=== PATIENT | female | born 1965 | race Two or more races ===

== ENCOUNTER → 2016-09-11 | Outpatient (CLI) | payer OTHER ==
[2014-08-28 16:25] VITALS: BP 124/58
--- NOTE | 2016-09-11 10:29 | RAD ---
Indication palpable mass. Targeted ultrasound to the left breast was performed. Examination was targeted to approximately 2 to 3:00 position of the breast where the patient feels a mass. In addition to images submitted by the technologist a real-time examination was performed by me. Corresponding to the palpable abnormality is a 3.8 cm cyst. Additional smaller cysts were noted in the same area of the breast at the time of exam. IMPRESSION: Simple cyst corresponding to the palpable abnormality in the left breast
== END | disposition home or self-care (01) ==
LOC: US 08:48
PROVIDERS: ATTEND Surgery
DX: N63 Unspecified lump in breast (principal)
CPT/HCPCS: 76641

== ENCOUNTER → 2016-09-15 | Outpatient (CLI) | payer OTHER ==
[~2016-09-15] VITALS: Ht 162.6 cm; Wt 77.1 kg
[2016-09-15 14:05] VITALS: BP 122/66
--- NOTE | 2016-09-15 16:02 | RAD ---
EXAM: Sonographic guided left breast aspiration; sonographic guided right breast core biopsy; right breast biopsy clip placement; right breast postbiopsy mammogram. HISTORY: 50-year-old female presents for sonographically guided aspiration of left breast cysts and core biopsy of a right breast nodule. TECHNIQUE: The risks of the procedure were discussed with the patient and written informed with is obtained. A timeout was performed. Sonographic imaging of the left breast was performed, demonstrating multiple prominent cysts. The skin overlying these cysts was sterilely prepped, draped and infiltrated with 1% lidocaine. A needle was advanced into several cysts. Approximately 20 cc navarrete colored fluid was aspirated from the largest cyst measuring 3 cm in maximum dimension. 2 additional cysts were completely aspirated with similar appearing aspirate. The aspirate was submitted to the department of pathology for analysis. Sterile bandages were placed at the needle entry sites. Subsequently, sonographic imaging of the right breast was performed and a small round hypoechoic lesion at the 1:00 position 5 cm from the nipple was identified. The skin overlying this region was sterilely prepped, draped and infiltrated with lidocaine. Multiple passes were made through the lesion with sonographic guidance. A biopsy clip was advanced into the biopsy bed. A postbiopsy mammogram demonstrates the biopsy clip within the biopsy bed. Manual compression was maintained until hemostasis was achieved. A sterile bandage placed. The patient tolerated the procedures without immediate complication. IMPRESSION: 1. Sonographic guided aspiration of left breast cysts. 2. Sonographic guided core biopsy of a lesion at the 1:00 position of the right breast and postbiopsy clip placement.
--- NOTE | 2016-09-18 04:09 | PATHOLOGY ---
CYTOPATHOLOGY REPORT CLINICAL HISTORY: Left breast cyst. See also [id number]. SPECIMEN(S) RECEIVED: A.Fine needle aspiration, Left breast cyst FINAL DIAGNOSIS: Left breast cyst fine needle aspiration, ThinPrep and cell block: - No malignant cells identified. - Macrophages, inflammatory cells, and degenerating red blood cells. (JPM:mgraul; d/t: 09/17/16) PATHOLOGIST: Mitesh Waldrop M.D. REPORT ELECTRONICALLY SIGNED BY: Mitesh Waldrop M.D. DATE/TIME: 09/17/2016 15:59 GROSS PATHOLOGY: A. Fine needle aspiration, Left breast cyst: The specimen is labeled "Orly Son". Fifteen mL of cloudy brown fluid unfixed from the needle rinse is submitted and One ThinPrep slide and a cell block were prepared from this material. (clt 09.16.2016) CUSTOMER MANAGEMENT SPECIALIST(S): HILDA Cartwright([facility]) INITIAL CPT CODE(S): A; 01389, 39951 Professional services performed by [facility] [place] [address] Technical services performed by [facility] at [address] [place] [address], [address], [place] [address]. PATIENT: ORLY SON /AGE: 412/15/1965 (Age: 50) SEX: F PATIENT #: [id number] ALT CASE #: SPECIMEN COLLECTION DATE: 09/15/2016 SPECIMEN RECEIVED DATE: 09/16/[address] [facility] [address] [place] [address], [address] [place] [address] PHONE: [phone] DIRECTOR: Samuel Nur M.D. * * * END OF REPORT * * *
--- NOTE | 2016-09-18 04:43 | PATHOLOGY ---
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 COMMENT: Sections of the right breast mass core biopsy reveal an invasive ductal carcinoma. The invasive carcinoma shows little to no tubule formation, moderate to marked nuclear pleomorphism, and only a few mitotic figures. 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 The invasive carcinoma measures up to 0.3 cm in greatest dimension on the glass slide. There is no lymphovascular tumor invasion. There are no tumor associated calcifications. The case is also examined by Dr. Nesbitt, who concurs with the diagnosis. Breast prognostic studies will be performed, the results of which will be reported separately. (JPM:csd; d/t: 09/17/2016) REPORT ELECTRONICALLY SIGNED BY: Mitesh Waldrop M.D. DATE/TIME: 09/17/2016 16:34 * * * * * * * * GROSS PATHOLOGY: Received in formalin labeled "Orly Son, right breast," are multiple needle cores of yellow-warren fibrofatty tissue measuring 1.0 x 0.4 x 0.1 cm in aggregate dimensions. The tissue is submitted in its entirety in cassette A1. The cold ischemic time is 5 minutes. The total formalin fixation time is 28 hours and 25 minutes. (CAA; 09/16/2016) INITIAL CPT CODE(S): A; 55071, 85904(4) Professional services performed [place] [address] Technical services performed by [facility] at [address] [place] [address] [address] [address]. SPECIMEN(S) RECEIVED: A.Right breast mass CLINICAL HISTORY: Right breast mass PATIENT: ORLY SON /AGE: 412/15/1965 (Age: 50) PATIENT #: [id number] ALT CASE #: [id number] SPECIMEN COLLECTION DATE: 09/15/2016 SPECIMEN RECEIVED DATE: 09/16/2016 [facility] - [address] [place] [address] - PHONE: [phone] * * * END OF REPORT * * *
== END | disposition home or self-care (01) ==
LOC: US 13:00
PROVIDERS: ATTEND Surgery
DX: N60.02 Solitary cyst of left breast (principal); N63 Unspecified lump in breast
CPT/HCPCS: 19000; 19081; 76942; C1713; G0206

== ENCOUNTER 2016-10-21 07:10 | Observation (INO) | payer OTHER ==
[~2016-10-21] VITALS: Ht 162.6 cm; Wt 80.3 kg
[2016-10-21] VITALS (7 sets, daily range): BP systolic 89–127; BP diastolic 44–75
[~2016-10-21 07:10] MED LIST: CEFAZOLIN 2GM PREMIX 50 ML IV ONE; FENTANYL PF 100 MCG/2 ML VIAL. IV PRN; HYDROMORPHONE 2 MG/ML VIAL. IV PRN; IV RINGERS,LACTATED 1000ML 1,000 ML IV SCH; LIDOCAINE 1% 1 ML SYRINGE. ID PRN; MORPHINE SULFATE 2 MG/ML DISP.SYRIN. IV PRN; ONDANSETRON PF 4 MG/2 ML VIAL. IV PRN; PROCHLORPERAZINE 10 MG/2 ML VIAL. IV PRN
[2016-10-21 07:49] LABS: NEG OBC UR NEG; POS OBC UR POS
[2016-10-21 08:01] LABS: BASO # 0.1 x10^3/uL (0.0-0.2); BASO % 1 % (0-3); EOS % 7 % (0-3); HEMATOCRIT 33.7 % (36.0-47.0); HEMOGLOBIN 11.4 g/dL (12.0-15.5); LYMPH # 1.7 x10^3/uL (1.0-4.8); LYMPH % 28 % (24-48); MEAN CORPUSCULAR HEMOGLOBIN 31 pg (25-35); MEAN CORPUSCULAR HGB CONC 34 g/dL (31-37); MEAN CORPUSCULAR VOLUME 91 fL (79-100); MONO % 8 % (0-9); NEUT % 57 % (31-73); PLATELET COUNT 248 x10^3/uL (140-400); RED BLOOD COUNT 3.69 x10^6/uL (3.50-5.40)
[2016-10-21 08:08] LABS: CALCIUM 8.9 mg/dL (8.5-10.1); CREATININE 0.7 mg/dL (0.6-1.0); GFR 88.6; POTASSIUM 3.8 mmol/L (3.5-5.1)
[2016-10-21 08:13] LABS: ALBUMIN 3.5 g/dL (3.4-5.0); ALBUMIN/GLOBULIN RATIO 0.9 (1.0-1.7); TOTAL BILIRUBIN 0.4 mg/dL (0.2-1.0); TOTAL PROTEIN 7.6 g/dL (6.4-8.2)
[2016-10-21] MEDS ORDERED: LIDOCAINE 1% / SOD BICARB 8.4% 20 ML VIAL. IJ ONE (09:00)
[2016-10-21] MEDS ORDERED: PROPOFOL 20 ML IV ONE (09:34)
[2016-10-21] MEDS ORDERED: LIDOCAINE 2% 100 MG/5 ML DISP.SYRIN. ONE (09:34)
[2016-10-21] MEDS ORDERED: FENTANYL PF 250 MCG/5 ML VIAL. ONE (09:34)
[2016-10-21] MEDS ORDERED: DEXAMETHASONE SOD PHOS 20 MG/5 ML VIAL. ONE (09:34)
[2016-10-21] MEDS ORDERED: ONDANSETRON PF 4 MG/2 ML VIAL. ONE (09:34)
[2016-10-21] MEDS ORDERED: MIDAZOLAM HCL 2 MG/2 ML VIAL. ONE (09:34)
--- NOTE | 2016-10-21 10:02 | RAD ---
Right breast needle localization, 10/21/2016: History: Breast cancer Previous studies demonstrated a malignancy in the posterior aspect of the right breast at the 1:00 location. There is an adjacent marker from a previous breast biopsy. Under local anesthesia, aseptic conditions and mammographic guidance a Kopan's needle with modified retention wire was placed into this region via a superior approach. The needle was removed and the final images show that the mass and biopsy marker are centered approximately 7 mm posterior to the distal aspect of the thickened portion of the retention wire, 5-6 cm deep to the skin surface. The patient tolerated the procedure well and was sent to surgery in good condition.
--- NOTE | 2016-10-21 10:50 | RAD ---
Radionuclide sentinel node localization, 10/21/2016: History: Right breast cancer Under aseptic conditions and utilizing ethyl chloride spray for topical anesthesia a total of 0.90 mCi of filtered technetium 99m sulfur colloid mixed with 0.5 cc of 1% lidocaine was injected subdermally in the right periareolar region in 4 divided doses. No imaging was performed. The patient was sent to surgery in good condition.
[2016-10-21] MEDS ORDERED: BUPIVAC MPF-EPI 0.5%-1:200000 30 ML VIAL. ONE (12:41)
[2016-10-21] MEDS ORDERED: ISOSULFAN BLUE 50 MG/5 ML VIAL. SQ ONE (12:41)
[2016-10-21] MEDS ORDERED: LIDOCAINE 1%/EPI 1:100,000 20 ML VIAL. ONE (12:41)
[2016-10-21] MEDS ORDERED: EPHEDRINE PF IN SALINE 50 MG/5 ML DISP.SYRIN. IV ONE (12:54)
[2016-10-21] MEDS ORDERED: PROCHLORPERAZINE 10 MG/2 ML VIAL. IV PRN (14:00)
[2016-10-21] MEDS ORDERED: ONDANSETRON PF 4 MG/2 ML VIAL. IV PRN (14:00)
[2016-10-21] MEDS ORDERED: HYDROMORPHONE 2 MG/ML VIAL. IV PRN (14:00)
[2016-10-21] MEDS ORDERED: OXYCODONE/APAP 5/325 TABLET. PO PRN ×2 (14:00)
[2016-10-21] MEDS ORDERED: 0.9 % SODIUM CHLORIDE 10 ML DISP.SYRIN. IV PRN (14:00)
--- NOTE | 2016-10-21 14:00 | PDOC4 ---
Operative Note Operative Note Operative Note: Preoperative Diagnosis: Right breast cancer Postoperative Diagnosis: Same Procedure: Right segmental mastectomy with wire localization, right axillary sentinel lymph node biopsy Surgeon: Florentino Explosives Mixer Operator: Tana SPEARS Anesthesia: Gen. Specimen: Right axillary sentinel lymph node, hot and blue to pathology; right segmental mastectomy, short stitch superficial, long stitch lateral to pathology ; additional right lumpectomy inferior margin to pathology EBL: 10 mL Drains: None Complications: None Indication: The patient is a 50-year-old female who was recently diagnosed with right breast cancer. In reviewing her surgical option she is interested in breast conservation and appears to be an appropriate candidate. The plan is to proceed with a right segmental mastectomy utilizing wire localization. We also plan to incorporate a sentinel lymph node biopsy. The details and risks of surgery were discussed. The risks include and are not limited to bleeding, infection, anesthetic risk, pain, scar tissue, potential need for additional surgery or procedure. She understands and would like to proceed. Description: The patient was initially taken to radiology where she underwent injection of technetium sulfur colloid and placement of the localizing wire. She was taken to the operating room and placed supine on the operating table. Gen. anesthesia was performed. The right breast was prepped with ChloraPrep and draped in a standard surgical manner. The wire was entering the superior aspect of the right breast. 5 mL of Lymphazurin was injected deep to the nipple areolar complex. Several minutes were allowed to elapse. An incision was made in the right axilla with a scalpel. Cautery dissection was carried down to the axillary contents. The radio guided probe identified one focal area of increased nuclear uptake. We proceeded with dissection toward this area. This led to a blue stained lymph node which represented a sentinel lymph node. This was harvested and sent to pathology. Further inspection showed no other areas of blue staining. There was mild background radioactivity but no other focal focal areas of uptake. There was also no abnormal palpable adenopathy. Frozen section evaluation of the sentinel lymph node showed no evidence of metastasis. We then proceeded with the lumpectomy. An incision was made in the skin lines superior to the right nipple. Cautery dissection was carried down to the breast parenchyma directed toward the expected location of the tumor. The wire was readily identified and delivered into the wound. The lumpectomy was then performed using cautery. The involved breast tissue in the direction of the distal portion of the wire was mobilized from the surrounding breast tissue. The tumor was fairly close to the chest wall and care was taken to ensure dissection completely down the pectoralis muscle. The superficial margin of the lumpectomy specimen was marked with a short silk suture. The lateral margin was marked with a long silk suture. The specimen was then taken off of the chest wall in its entirety and sent to radiology. Specimen radiographs confirmed the clip and distal part of the wire to be well within the specimen. I did elect to remove a small ellipse of tissue along the inferior margin. This was done with cautery and sent as a specimen in formalin. No other gross abnormalities were seen. Hemostasis was readily achieved with cautery. The subcutaneous tissue of both incision sites was closed with interrupted 3-0 Vicryl. The skin was then approximated with a running 4-0 Monocryl suture. Sterile OpSite dressings were then applied. The patient tolerated the procedure well and was sent to the recovery room in stable condition. At the end of the case all counts were correct. SHARONA ENGLE MD Oct 21, 2016 14:00
--- NOTE | 2016-10-21 14:17 | RAD ---
Right digital specimen mammogram, 10/21/2016: History: Breast cancer A single image of a surgical specimen from the patient's right breast demonstrates the localized mass and adjacent biopsy marker within the specimen centered at the I/5-7 level in the specimen container. This mass lies adjacent to the proximal aspect of the thickened portion of the retention wire. There are additional microcalcifications within the specimen at the F-H/7 level in the specimen container.
[2016-10-21] MEDS: FENTANYL PF 100 MCG/2 ML VIAL. IV PRN ×3 (14:25→14:56)
[2016-10-21] MEDS ORDERED: PNEUMOC CONJ VACC 23-VALENT 0.5 ML VIAL. VAX IM ONE (16:15)
[2016-10-21] MEDS ORDERED: FLU VACC QUAD 2016-17 (36MOS+)/PF 0.5 ML SYRINGE. VAX IM ONE (16:15)
[2016-10-21] MEDS: POTASSIUM CL 20MEQ D5-0.45NACL 1,000 ML IV SCH ×2 (16:28→20:43)
[2016-10-22 03:00] VITALS: BP 84/39
[2016-10-22 07:00] VITALS: BP 94/44
--- NOTE | 2016-10-22 09:09 | PDOC ---
NAKIA YOUNG HYDRAULIC PRESS OPERATOR 10/22/16 0909: SURGICAL PROGRESS NOTE Subjective tolerating diet pain minimal ambulating Vital Signs Vital Signs Date Time Temp Pulse Resp B/P Pulse Ox O2 Delivery O2 Flow Rate FiO2 10/22/16 07:00 97.7 66 18 94/44 96 Room Air 97.7 10/21/16 20:00 10.0 I&O Intake and Output 10/22/16 07:00 Intake Total 2495 ml Balance 2495 ml Intake Oral 845 ml IV Total 1650 ml # Voids 4 General: Alert, Oriented X3, Cooperative, No acute distress Skin: Other (right breast incision dressing intact) Labs Laboratory Tests Test 10/21/16 07:35 10/21/16 07:45 Urine Test Negative (NEG) White Blood Count 6.0x10^3/uL (4.0-11.0) Red Blood Count 3.69x10^6/uL (3.50-5.40) Hemoglobin 11.4g/dL (12.0-15.5) Hematocrit 33.7% (36.0-47.0) Mean Corpuscular Volume 91fL (79-100) Mean Corpuscular Hemoglobin 31pg (25-35) Mean Corpuscular Hemoglobin Concent 34g/dL (31-37) Red Cell Distribution Width 14.0% (11.5-14.5) Platelet Count 248x10^3/uL (140-400) Neutrophils (%) (Auto) 57% (31-73) Lymphocytes (%) (Auto) 28% (24-48) Monocytes (%) (Auto) 8% (0-9) Eosinophils (%) (Auto) 7% (0-3) Basophils (%) (Auto) 1% (0-3) Neutrophils # (Auto) 3.4x10^3uL (1.8-7.7) Lymphocytes # (Auto) 1.7x10^3/uL (1.0-4.8) Monocytes # (Auto) 0.5x10^3/uL (0.0-1.1) Eosinophils # (Auto) 0.4x10^3/uL (0.0-0.7) Basophils # (Auto) 0.1x10^3/uL (0.0-0.2) Sodium Level 143mmol/L (136-145) Potassium Level 3.8mmol/L (3.5-5.1) Chloride Level 106mmol/L (98-107) Carbon Dioxide Level 29mmol/L (21-32) Anion Gap 8 (6-14) Blood Urea Nitrogen 17mg/dL (7-20) Creatinine 0.7mg/dL (0.6-1.0) Estimated GFR (Cockcroft-Gault) 88.6 BUN/Creatinine Ratio 24 (6-20) Glucose Level 101mg/dL (70-99) Calcium Level 8.9mg/dL (8.5-10.1) Total Bilirubin 0.4mg/dL (0.2-1.0) Aspartate Amino Transf (AST/SGOT) 15U/L (15-37) Alanine Aminotransferase (ALT/SGPT) 18U/L (14-59) Alkaline Phosphatase 99U/L (46-116) Total Protein 7.6g/dL (6.4-8.2) Albumin 3.5g/dL (3.4-5.0) Albumin/Globulin Ratio 0.9 (1.0-1.7) Problem List Problems Medical Problems: (1) Breast cancer, right Status: Acute Assessment/Plan s/p right mastectomy dc home FU 1 week Problems: SHARONA ENGLE MD 10/22/16 1115: SURGICAL PROGRESS NOTE Assessment/Plan Agree with above Problems: NAKIA YOUNG APRN Oct 22, 2016 09:09 SHARONA ENGLE MD Oct 22, 2016 11:15
[2016-10-22] MEDS ORDERED: OXYC1TAB7 PO (09:11)
[2016-10-22 11:00] VITALS: BP 97/49
--- NOTE | 2016-10-26 10:17 | PDOC3 ---
Discharge Summary* Date of Admission: Oct 21, 2016 Date of Discharge: Oct 22, 2016 Admitting Diagnosis Problems Medical Problems: (1) Breast cancer, right Status: Acute Final Diagnosis Problems Medical Problems: (1) Breast cancer, right Status: Acute CONSULTS NONE Procedures Right segmental mastectomy with wire localization, right axillary sentinel lymph node biopsy Brief Hospital Course Ms. Son is a 50 old female who presented with breast cancer and underwent mastectomy, postoperatively tolerating diet, pain managed, and ambulating. Ready for discharge home Disposition/Orders: D/C to Home CONDITION AT DISCHARGE: Stable Diet: Regular Scheduled PRN Oxycodone Hcl/Acetaminophen (Oxycodone-Acetaminophen 5-325) 1 TAB PO PRN Q4HRS PRN PRN MILD PAIN, 1ST CHOICE Miscellaneous Medications Info (No Known Medications Prior To Admisstion) 1 EACH MC (Reported) FOLLOW UP APPOINTMENT: 1 week Time Spent Total time spent with patient [] minutes for coordination of care, counseling, and education. NAKIA YOUNG APRN Oct 26, 2016 10:17
--- NOTE | 2016-10-29 13:52 | PATHOLOGY ---
PATHOLOGY REPORT * * * * * * * * FINAL DIAGNOSIS: A. [place] lymph node #1 hot and blue: - Negative for tumor (0/1). B. Breast tissue, wire localized right segmental mastectomy: - RESIDUAL INVASIVE HIGH-GRADE DUCTAL CARCINOMA AND FOCAL INTERMEDIATE TO HIGH-GRADE DUCTAL CARCINOMA IN SITU, FORMING A TUMOR MASS MEASURING UP TO 2.0 CM IN GREATEST DIMENSION. - TUMOR IS APPROXIMATELY 0.3 CM FROM THE CLOSEST ANTERIOR SUPERFICIAL MARGIN OF RESECTION. - No lymphovascular tumor invasion identified. - Previous biopsy site changes. - Fibrocystic changes, focal. C. Breast tissue, additional inferior margin: - Focal proliferative fibrocystic changes with focal mild to moderate ductal epithelial hyperplasia. Clinical History: Other: Breast mass Radiologic Finding: Mass or architectural distortion Procedure: Other: Wire localized segmental mastectomy. Lymph Node Sampling: [place] lymph node(s) Specimen Laterality: Right Tumor Site of Invasive Carcinoma: Not specified: . Presence of Invasive Carcinoma: Invasive ductal carcinoma (no special type or not otherwise specified) Histologic Grade: Tubule formation: Score 3: <10% of tumor area forming glandular/tubular structures Nuclear pleomorphism: Score 3: Vesicular nuclei, often with prominent nucleoli, exhibiting marked variation in size and shape, occasionally with very large and bizarre forms Mitotic Rate: Score 2 (4-7 mitoses per mm2) [place] Histologic Score-Grade III: 8-9 points Ductal Carcinoma In Situ: DCIS is present Negative for extensive intraductal component (EIC) DCIS Architectural Patterns: Solid DCIS Nuclear Grade: Grade III (high) DCIS Necrosis: Present, central (expansive "comedo" necrosis) Lobular Carcinoma In Situ (LCIS): Not identified: . Tumor Size: Size of Largest Invasive Carcinoma: Greatest dimension of largest focus of invasion > 1 mm Greatest dimension: 20 mm Skin: Skin is not present No skeletal muscle present Invasive Carcinoma Margins: Margins uninvolved by invasive carcinoma. Distance from closest margin: 3 mm Closest Uninvolved Margin-Anterior Distance of invasive carcinoma to posterior margin: 4 mm DCIS Margins: Margins uninvolved by DCIS (DCIS present) Lymph-Vascular Invasion: Not identified: . Dermal Lymph-Vascular Invasion: No skin present Microcalcifications: Not identified: . Treatment Effect: No known presurgical therapy Lymph Nodes: Total number of nodes examined (sentinel and nonsentinel): 1 Micro / Macro Metastases not identified: . Number of [place] Lymph Nodes examined: 1 Method of Evaluation of [place] Lymph Nodes: H-E, multiple levels Method of Evaluation of [place] Lymph Nodes: Immunohistochemistry Estrogen Receptor: Performed on another specimen, number: [id number] Results from other specimen: 0% Progesterone Receptor: Performed on another specimen, number: [id number] Results from other specimen: 0% HER2 Immunoperoxidase Results: Performed on another specimen, number: [id number] Results from other specimen: 3+ In Situ Hybridization (FISH or CISH) for HER2 Results: Not performed: . Other Ancillary Studies: Performed on another specimen Specimen (accession number): [id number] Name of test: Ki67 Results: 12.6% TNM Descriptor(s): Primary Tumor (Invasive Carcinoma) (pT): pT1c: Tumor >10 mm but <= 20 mm in greatest dimension Regional Lymph Nodes (pN): Modifier (sn): Only sentinel node(s) evaluated. Category (pN): pN0 (i-): No regional lymph node metastases histologically, negative IHC Additional Pathologic Findings: See diagnoses COMMENT: Sections of the wire localized right segmental mastectomy reveal an invasive high-grade ductal carcinoma with focal high-grade ductal carcinoma in situ. The tumor mass measures up to 2.0 cm in greatest dimension. The tumor is approximately 0.3 cm from the closest anterior superficial margin of resection, and 0.4 cm from the closest posterior margin of resection. There is no lymphovascular tumor invasion. There is a single sentinel lymph node submitted for examination. An immunoperoxidase stain for AE1/AE3 is obtained on the lymph node and yields the following results: AE1/AE3 (A1): negative for tumor (ANIYA:; d/t: 10/28/16) REPORT ELECTRONICALLY SIGNED BY: Mitesh Waldrop M.D. DATE/TIME: 10/29/2016 13:51 * * * * * * * * GROSS PATHOLOGY: A. The specimen is received fresh for intraoperative consultation and is designated "sentinel lymph node #1 hot and blue." This consists of an ovoid segment of yellow fatty appearing tissue measuring up to 1.9 x 1.6 cm. This contains a pink-yellow lymph node showing focal bluish discoloration, measuring up to 1.4 cm in greatest dimension. This is submitted for frozen section as FSA1. The tissue remaining from frozen section is submitted for permanent sections as A1. (JPM:mgr; d/t: 10/21/16) B. The specimen is received in formalin, labeled "Orly Son - short stitch superficial, long stitch lateral, right segmental mastectomy." Received is a 60 g right segmental mastectomy specimen oriented with sutures as follows: Short-superficial and long-lateral. The specimen measures 9.4 cm from superior to inferior, 6.5 cm from medial to lateral, and 2.4 cm from anterior/superficial to posterior/deep. The specimen displays a needle localization wire, which inserts at the superior/anterior aspect of the breast. Skin is not grossly identified. The specimen is inked as follows: Superior-blue, inferior-green, medial-yellow, lateral-red, anterior/superficial-black, and posterior/deep - orange. The specimen is serially sectioned from superior to inferior to reveal a 2.0 x 1.2 x 0.8 cm white-navarrete, poorly circumscribed, and firm mass. The mass is located 0.4 cm from the anterior/superficial margin, 0.7 cm from the posterior/deep margin, 1.5 cm from the medial margin, 2.8 cm from the lateral margin, 3.5 cm from the superior margin, and 4.4 cm from the inferior margin. The remaining parenchyma is composed of predominantly yellow-navarrete and lobulated adipose soft tissue and less than 5% white fibrous tissue. The cold ischemic time and time in formalin are not provided. The time out of formalin is at 11:41 PM on 10/22/2016. The specimen is representatively submitted as follows: B1 most superior margin B2 most inferior margin B3-B7 mass, entirely submitted from superior to inferior B8 lateral and medial margins C. The specimen is received in formalin, labeled "Orly Son - additional inferior margin." Received is a 6 g, 7.8 x 2.0 x 1.1 cm aggregate of blood-tinged, yellow-navarrete, and lobulated fibroadipose tissue. The specimen is inked black and serially sectioned to reveal a 1.0 x 0.5 cm focal area of fibrous tissue. The remaining parenchyma is yellow-navarrete and lobulated with less than 5% white fibrous tissue. No distinct masses are grossly identified. The cold ischemic time and time in formalin are not provided. The time out of formalin is at 11:41 PM on 10/22/2016. The specimen is entirely submitted in cassette C1-C8, with the fibrous tissue submitted in cassette C2. (TTL; 10/22/2016) FROZEN SECTION DIAGNOSIS: (Denise Waldrop M.D.) A. [place] lymph node #1 hot and blue: - Negative for tumor. The results are reported to Dr. Good in the operating room. (JPM:; d/t: 10/21/16) Testing performed [place] [address] INITIAL CPT CODE(S): 76304(2), 16747, 17341 Professional services performed [place] [facility] [address] Technical services performed by [facility] at [address] [place] [address], [facility] [address] [address]. SPECIMEN(S) RECEIVED: A.[place] lymph node #1 hot and blue B.Right segmental mastectomy C.Additional inferior margin CLINICAL HISTORY: None given PATIENT: ORLY SON /AGE: 412/15/1965 (Age: 50) PATIENT #: [id number] ALT CASE #: SPECIMEN COLLECTION DATE: 10/21/2016 SPECIMEN RECEIVED DATE: 10/21/2016 [facility] - [address] [place] [address] - PHONE: [phone] * * * END OF REPORT * * *
[2016-11-23] MEDS ORDERED: OXYC-323 PO (15:03)
== END 2016-10-22 11:00 | disposition home or self-care (01) ==
LOC: SURG 07:10 → 4 NORTH 15:46
PROVIDERS: ADMIT Surgery; ATTEND Surgery
DX: C50.911 Malignant neoplasm of unspecified site of right female breast (principal); Z23 Encounter for immunization
CPT/HCPCS: 19281; 19301; 36415; 38525; 38792; 76098; 80053; 81025; 85027; 90471; 90472; 90686; 90732; 96374; 96375; A9541; C1769; G0378; G0379; J0690; J1100; J2250; J2405; J2704; J3010; J3490; J7120; Q9968; 88305; 88307; 88342; J0780; J2270; G0641

== ENCOUNTER → 2016-11-23 | Day surgery (SDC) | payer OTHER ==
[~2016-11-23] VITALS: Ht 162.6 cm; Wt 80.7 kg
[~2016-11-23] MED LIST changes: +DEXAMETHASONE SOD PHOS 20 MG/5 ML VIAL. ONE; -FENTANYL PF 100 MCG/2 ML VIAL. IV PRN; +FENTANYL PF 100 MCG/2 ML VIAL. ONE; +HEPARIN S0DIUM 5,000 UNIT in IV NORMAL SALINE 500ML BAG 500 ML IRR ONE; +LIDOCAINE 1% PF 30 ML VIAL. ONE; +LIDOCAINE 2% 100 MG/5 ML DISP.SYRIN. ONE; +ONDANSETRON PF 4 MG/2 ML VIAL. ONE; +OXYC-323 PO; +OXYC1TAB7 PO; +OXYCODONE/APAP 5/325 TABLET. PO ONE; +PHENYLEPHRINE in 0.9% NACL PF 1 MG/10 ML DISP.SYRIN. IV ONE; +PROPOFOL 20 ML IV ONE; +SEVOFLURANE 31 TO 60 MINUTES. IH ONE
[2016-11-23 10:09] LABS: NEG OBC UR NEG; POS OBC UR POS
--- NOTE | 2016-11-23 13:16 | DISCH ---
DISCHARGE INSTRUCTIONS Condition on Discharge Condition on Discharge: Stable Activity After Discharge Activity Instructions for Disc: Resume previous activity Diet after Discharge Diet after Discharge: Regular Wound Incision Care Wound/Incision Care: Other, see below (keep opsite dressing clean and dry) Follow-Up Follow up with: Dr Engle in 2-3 weeks, call for appt [phone] SHARONA ENGLE MD Nov 23, 2016 13:16
--- NOTE | 2016-11-23 13:16 | PDOC4 ---
Operative Note Operative Note Operative Note: Preoperative Diagnosis: Right breast cancer Postoperative Diagnosis: Same Procedure: Placement of Power Port-A-Cath using SonoSite guidance Surgeon: Florentino Anesthesia: Gen. EBL: 10 mL Specimen: None Drains: None Complications: None Indication: The patient is a 50 year old female with recently diagnosed right breast cancer. A request was made for placement of a Port-A-Cath. The details and risks of the procedure were discussed. The risks include bleeding, infection , vessel injury, pneumothorax, pain, anesthetic risk, port, catheter or tubing malfunction or dysfunction, potential need for additional surgery or procedure. The patient understands and would like to proceed. Description: The patient was placed supine on the operating table and general anesthesia was performed. The bilateral neck and chest were prepped with ChloraPrep and draped in a standard surgical manner. With SonoSite ultrasound guidance the left internal jugular vein was readily identified and appeared patent. Entry was made into the vein with the skinny introducer needle under ultrasound guidance. The skinny guidewire passed readily into the central venous system. A small incision was made at the skin exit site. The skinny sheath was then placed over the guidewire. The larger guidewire was then placed within the sheath into the central venous system. Intraoperative fluoroscopy confirmed good position of the guidewire in the central venous system. The dilator and sheath were then placed over the guidewire. The catheter portion was then inserted into the central venous system and visualized using fluoroscopy. A separate left upper chest skin incision was made with a scalpel. A subcutaneous pocket was developed with cautery of sufficient size to accommodate the port. The catheter was then tunneled subcutaneously to the level of the newly formed pocket. Using fluoroscopy the catheter was positioned with the tip in the distal superior vena cava. The catheter was then cut and assembled to the port. The port was then secured to the chest wall with two 2-0 Prolene sutures. Using the Seymour needle the port readily aspirated and flushed without difficulty. Fluoroscopy confirmed good positioning of the catheter with no twists or kinks. The subcutaneous tissue was approximated with 3-0 Vicryl. The skin was then closed with 4-0 Monocryl. A sterile OpSite dressing was then applied. The patient tolerated the procedure well and was sent to the recovery room in stable condition. At the end of the case all counts were correct. SHARONA ENGLE MD Nov 23, 2016 13:16
[2016-11-23] MEDS: FENTANYL PF 100 MCG/2 ML VIAL. IV PRN ×5 (13:18→14:24)
--- NOTE | 2016-11-23 14:24 | RAD ---
Portable chest, 11/23/2016: History: Check Port-A-Cath placement A left Port-A-Cath is in place with its tip lying in the superior vena cava. The heart size and pulmonary vascularity are normal. No pulmonary infiltrates are seen. There is no evidence of pleural fluid. IMPRESSION: 1. The tip of the left Port-A-Cath lies in the superior vena cava. 2. No acute cardiopulmonary abnormality is detected.
[2016-11-23 15:15] VITALS: BP 100/68
== END | disposition home or self-care (01) ==
LOC: SURG 09:12
PROVIDERS: ATTEND Surgery
DX: C50.911 Malignant neoplasm of unspecified site of right female breast (principal); Z90.49 Acquired absence of other specified parts of digestive tract; Z85.3 Personal history of malignant neoplasm of breast
CPT/HCPCS: 36561; 71010; 81025; C1788; J0690; J1100; J2370; J2405; J2704; J3010; J7040; 36556

== ENCOUNTER → 2016-12-15 | Outpatient (CLI) | payer OTHER ==
[2016-11-23 15:15] VITALS: BP 100/68
[~2016-12-15] MED LIST changes: -CEFAZOLIN 2GM PREMIX 50 ML IV ONE; -DEXAMETHASONE SOD PHOS 20 MG/5 ML VIAL. ONE; -FENTANYL PF 100 MCG/2 ML VIAL. ONE; +HEPARIN PF 500 UNIT/5 ML DISP.SYRIN. IV ONE; -HEPARIN S0DIUM 5,000 UNIT in IV NORMAL SALINE 500ML BAG 500 ML IRR ONE; -HYDROMORPHONE 2 MG/ML VIAL. IV PRN; +IOHEXOL 240 MG/ML 50ML VIAL. PO ONE; +IOHEXOL 300 MG/ML 75 ML VIAL IV ONE; -IV RINGERS,LACTATED 1000ML 1,000 ML IV SCH; -LIDOCAINE 1% 1 ML SYRINGE. ID PRN; -LIDOCAINE 1% PF 30 ML VIAL. ONE; -LIDOCAINE 2% 100 MG/5 ML DISP.SYRIN. ONE; -MORPHINE SULFATE 2 MG/ML DISP.SYRIN. IV PRN; -ONDANSETRON PF 4 MG/2 ML VIAL. IV PRN; -ONDANSETRON PF 4 MG/2 ML VIAL. ONE; -OXYCODONE/APAP 5/325 TABLET. PO ONE; -PHENYLEPHRINE in 0.9% NACL PF 1 MG/10 ML DISP.SYRIN. IV ONE; -PROCHLORPERAZINE 10 MG/2 ML VIAL. IV PRN; -PROPOFOL 20 ML IV ONE; -SEVOFLURANE 31 TO 60 MINUTES. IH ONE
[2016-12-15 13:33] LABS: BASO # 0.1 x10^3/uL (0.0-0.2); BASO % 1 % (0-3); EOS % 7 % (0-3); HEMATOCRIT 34.3 % (36.0-47.0); HEMOGLOBIN 11.2 g/dL (12.0-15.5); LYMPH # 2.1 x10^3/uL (1.0-4.8); LYMPH % 31 % (24-48); MEAN CORPUSCULAR HEMOGLOBIN 29 pg (25-35); MEAN CORPUSCULAR HGB CONC 33 g/dL (31-37); MEAN CORPUSCULAR VOLUME 90 fL (79-100); MONO % 8 % (0-9); NEUT % 52 % (31-73); PLATELET COUNT 269 x10^3/uL (140-400); RED BLOOD COUNT 3.83 x10^6/uL (3.50-5.40); RED CELL DISTRIBUTION WIDTH 13.7 % (11.5-14.5); WHITE BLOOD COUNT 6.7 x10^3/uL (4.0-11.0)
[2016-12-15 13:50] LABS: ALBUMIN 3.6 g/dL (3.4-5.0); ALBUMIN/GLOBULIN RATIO 0.8 (1.0-1.7); CALCIUM 8.8 mg/dL (8.5-10.1); CREATININE 0.8 mg/dL (0.6-1.0); GFR 75.6; POTASSIUM 4.4 mmol/L (3.5-5.1); TOTAL BILIRUBIN 0.4 mg/dL (0.2-1.0); TOTAL PROTEIN 8.4 g/dL (6.4-8.2)
--- NOTE | 2016-12-15 15:36 | RAD ---
CT scan of the chest, abdomen and pelvis with contrast 12/15/2016 Clinical history: Breast cancer. Technique: After the oral and intravenous administration of contrast, contiguous, 5 mm axial sections were obtained through the chest abdomen and pelvis. 75 cc of Omnipaque 300 were administered intravenously during this examination. One or more of the following individualized dose reduction techniques were utilized for this study: 1. Automated exposure control. 2. Adjustment of the mA and/or kV according to patient size. 3. Use of iterative reconstruction technique. Findings: A left internal jugular [id number]-a-[id number] type catheter is seen extending to the proximal left brachiocephalic vein. No hilar, mediastinal or axillary lymphadenopathy is seen. Postsurgical changes are seen involving the right breast. The heart is borderline enlarged. The thoracic aorta tapers normally. Small linear bands of scarring are seen involving the apices of both lungs. No acute pulmonary infiltrate is seen. No pulmonary mass or significant pulmonary nodule is noted. No pneumothorax or pleural effusion is seen. The liver, spleen, pancreas, adrenal glands and kidneys are within normal limits. The abdominal aorta tapers normally. The gallbladder is slightly contracted. No free fluid or free air is seen within the abdomen. There is no evidence of bowel obstruction. Air and stool is seen throughout the colon. No retroperitoneal lymphadenopathy is seen. Images through the pelvis demonstrate the urinary bladder distended with urine. The uterus is within normal limits. No adnexal mass is seen. Calcifications are seen within the pelvis consistent with phleboliths. No free fluid is seen. No pelvic or inguinal lymphadenopathy is noted. Minimal degenerative changes are seen involving the thoracic and lower lumbar spine. Minimal S shaped curvature of the thoracolumbar spine is noted. Impression: There is no CT evidence of metastatic disease involving the chest, abdomen and pelvis.
--- NOTE | 2016-12-15 17:19 | RAD ---
Radionuclide bone scan, 12/15/2016: History: Breast cancer. Whole body imaging was performed following IV injection of 25 mCi of technetium 99m MDP. No previous bone scan is available at this time for comparison purposes. The following findings are delineated on today's exam: 1. There is minimally increased activity in the lower lumbar spine on the right at approximately the L4 level. The current CT study demonstrates spurring in this region, which is likely the source of this activity. No sclerotic or lytic lesion is seen on the CT exam. 2. Increased activity at both shoulders, elbows, wrists and ankles is likely arthritic. 3. Minimally increased activity in the right mandibular region is probably due to dental disease. 4. Activity of the radionuclide about the skeleton and major joints is otherwise symmetric. 5. Normal activity is present in the kidneys and the bladder. IMPRESSION: No convincing evidence of osseous metastatic disease.
== END | disposition home or self-care (01) ==
LOC: NM 08:30
PROVIDERS: ATTEND Internal Medicine Hematology & Oncology
DX: C50.211 Malignant neoplasm of upper-inner quadrant of right female breast (principal)
CPT/HCPCS: 36415; 71260; 74177; 78306; 80053; 85027; 86300; 96374; A9503; Q9966; Q9967

== ENCOUNTER → 2017-01-26 | Outpatient (CLI) | payer OTHER ==
[2016-11-23 15:15] VITALS: BP 100/68
[~2017-01-26] MED LIST changes: -HEPARIN PF 500 UNIT/5 ML DISP.SYRIN. IV ONE; -IOHEXOL 240 MG/ML 50ML VIAL. PO ONE; -IOHEXOL 300 MG/ML 75 ML VIAL IV ONE
[2017-01-26 09:58] LABS: BASO # 0.1 x10^3/uL (0.0-0.2); BASO % 1 % (0-3); EOS % 9 % (0-3); HEMATOCRIT 36.3 % (36.0-47.0); HEMOGLOBIN 11.7 g/dL (12.0-15.5); LYMPH # 1.8 x10^3/uL (1.0-4.8); LYMPH % 31 % (24-48); MEAN CORPUSCULAR HEMOGLOBIN 28 pg (25-35); MEAN CORPUSCULAR HGB CONC 32 g/dL (31-37); MEAN CORPUSCULAR VOLUME 88 fL (79-100); MONO % 8 % (0-9); NEUT % 51 % (31-73); PLATELET COUNT 249 x10^3/uL (140-400); RED BLOOD COUNT 4.13 x10^6/uL (3.50-5.40); RED CELL DISTRIBUTION WIDTH 14.7 % (11.5-14.5); WHITE BLOOD COUNT 5.9 x10^3/uL (4.0-11.0)
[2017-01-26 10:18] LABS: ALBUMIN 3.6 g/dL (3.4-5.0); ALBUMIN/GLOBULIN RATIO 0.8 (1.0-1.7); CREATININE 0.8 mg/dL (0.6-1.0); GFR 75.6; POTASSIUM 4.1 mmol/L (3.5-5.1); TOTAL BILIRUBIN 0.3 mg/dL (0.2-1.0); TOTAL PROTEIN 8.2 g/dL (6.4-8.2)
== END | disposition home or self-care (01) ==
LOC: LAB 09:34
PROVIDERS: ATTEND Internal Medicine Hematology & Oncology
DX: C50.211 Malignant neoplasm of upper-inner quadrant of right female breast (principal)
CPT/HCPCS: 36415; 80053; 83735; 85027; 86300

== ENCOUNTER → 2017-02-02 | Outpatient (CLI) | payer OTHER ==
[2016-11-23 15:15] VITALS: BP 100/68
[2017-02-02 11:36] LABS: BASO % 1 % (0-3); EOS % 3 % (0-3); HEMATOCRIT 36.7 % (36.0-47.0); HEMOGLOBIN 12.2 g/dL (12.0-15.5); LYMPH # 1.3 x10^3/uL (1.0-4.8); LYMPH % 41 % (24-48); MEAN CORPUSCULAR HEMOGLOBIN 29 pg (25-35); MEAN CORPUSCULAR HGB CONC 33 g/dL (31-37); MEAN CORPUSCULAR VOLUME 86 fL (79-100); MONO % 2 % (0-9); NEUT % 54 % (31-73); PLATELET COUNT 218 x10^3/uL (140-400); RED BLOOD COUNT 4.28 x10^6/uL (3.50-5.40); RED CELL DISTRIBUTION WIDTH 14.6 % (11.5-14.5); WHITE BLOOD COUNT 3.1 x10^3/uL (4.0-11.0)
[2017-02-02 12:04] LABS: ALBUMIN 3.7 g/dL (3.4-5.0); ALBUMIN/GLOBULIN RATIO 0.8 (1.0-1.7); CALCIUM 9.1 mg/dL (8.5-10.1); CREATININE 0.7 mg/dL (0.6-1.0); GFR 88.2; MAGNESIUM 1.9 mg/dL (1.8-2.4); POTASSIUM 4.2 mmol/L (3.5-5.1); TOTAL BILIRUBIN 0.6 mg/dL (0.2-1.0); TOTAL PROTEIN 8.4 g/dL (6.4-8.2)
== END | disposition home or self-care (01) ==
LOC: LAB 11:08
PROVIDERS: ATTEND Internal Medicine Hematology & Oncology
DX: C50.211 Malignant neoplasm of upper-inner quadrant of right female breast (principal)
CPT/HCPCS: 36415; 80053; 83735; 85027

== ENCOUNTER → 2017-02-09 | Outpatient (CLI) | payer OTHER ==
[2016-11-23 15:15] VITALS: BP 100/68
[2017-02-09 09:33] LABS: BASO % 1 % (0-3); EOS % 1 % (0-3); HEMATOCRIT 30.6 % (36.0-47.0); HEMOGLOBIN 10.9 g/dL (12.0-15.5); LYMPH # 1.7 x10^3/uL (1.0-4.8); LYMPH % 66 % (24-48); MEAN CORPUSCULAR HEMOGLOBIN 30 pg (25-35); MEAN CORPUSCULAR HGB CONC 36 g/dL (31-37); MEAN CORPUSCULAR VOLUME 85 fL (79-100); MONO % 25 % (0-9); NEUT % 8 % (31-73); PLATELET COUNT 208 x10^3/uL (140-400); RED CELL DISTRIBUTION WIDTH 14.6 % (11.5-14.5); WHITE BLOOD COUNT 2.6 x10^3/uL (4.0-11.0)
[2017-02-09 12:33] LABS: PLT ESTIMATE ADEQUATE (ADEQUATE)
== END | disposition home or self-care (01) ==
LOC: LAB 09:19
PROVIDERS: ATTEND Internal Medicine Medical Oncology
DX: C50.211 Malignant neoplasm of upper-inner quadrant of right female breast (principal)
CPT/HCPCS: 36415; 85007; 85027

== ENCOUNTER → 2017-02-16 | Outpatient (CLI) | payer OTHER ==
[2016-11-23 15:15] VITALS: BP 100/68
[2017-02-16 10:20] LABS: BASO % 1 % (0-3); EOS % 0 % (0-3); HEMATOCRIT 31.8 % (36.0-47.0); HEMOGLOBIN 10.8 g/dL (12.0-15.5); LYMPH # 1.9 x10^3/uL (1.0-4.8); LYMPH % 29 % (24-48); MEAN CORPUSCULAR HEMOGLOBIN 29 pg (25-35); MEAN CORPUSCULAR HGB CONC 34 g/dL (31-37); MEAN CORPUSCULAR VOLUME 85 fL (79-100); MONO % 8 % (0-9); NEUT % 63 % (31-73); PLATELET COUNT 197 x10^3/uL (140-400); RED BLOOD COUNT 3.74 x10^6/uL (3.50-5.40); RED CELL DISTRIBUTION WIDTH 15.1 % (11.5-14.5); WHITE BLOOD COUNT 6.7 x10^3/uL (4.0-11.0)
[2017-02-16 10:38] LABS: ALBUMIN 3.4 g/dL (3.4-5.0); ALBUMIN/GLOBULIN RATIO 0.8 (1.0-1.7); CALCIUM 8.9 mg/dL (8.5-10.1); CREATININE 0.8 mg/dL (0.6-1.0); GFR 75.6; MAGNESIUM 1.9 mg/dL (1.8-2.4); POTASSIUM 3.6 mmol/L (3.5-5.1); TOTAL BILIRUBIN 0.3 mg/dL (0.2-1.0); TOTAL PROTEIN 7.9 g/dL (6.4-8.2)
== END | disposition home or self-care (01) ==
LOC: LAB 10:01
PROVIDERS: ATTEND Internal Medicine Hematology & Oncology
DX: C50.211 Malignant neoplasm of upper-inner quadrant of right female breast (principal)
CPT/HCPCS: 36415; 80053; 83735; 85027

== ENCOUNTER → 2017-03-08 | Outpatient (CLI) | payer OTHER ==
[2016-11-23 15:15] VITALS: BP 100/68
[2017-03-08 09:19] LABS: BASO % 1 % (0-3); EOS % 0 % (0-3); HEMATOCRIT 30.1 % (36.0-47.0); HEMOGLOBIN 10.2 g/dL (12.0-15.5); LYMPH # 1.5 x10^3/uL (1.0-4.8); LYMPH % 28 % (24-48); MEAN CORPUSCULAR HEMOGLOBIN 29 pg (25-35); MEAN CORPUSCULAR HGB CONC 34 g/dL (31-37); MEAN CORPUSCULAR VOLUME 86 fL (79-100); MONO % 9 % (0-9); NEUT % 63 % (31-73); PLATELET COUNT 169 x10^3/uL (140-400); RED BLOOD COUNT 3.51 x10^6/uL (3.50-5.40); RED CELL DISTRIBUTION WIDTH 15.4 % (11.5-14.5); WHITE BLOOD COUNT 5.3 x10^3/uL (4.0-11.0)
[2017-03-08 09:35] LABS: ALBUMIN 3.2 g/dL (3.4-5.0); ALBUMIN/GLOBULIN RATIO 0.7 (1.0-1.7); CALCIUM 8.7 mg/dL (8.5-10.1); CREATININE 0.8 mg/dL (0.6-1.0); GFR 75.6; MAGNESIUM 1.7 mg/dL (1.8-2.4); POTASSIUM 3.3 mmol/L (3.5-5.1); TOTAL BILIRUBIN 0.3 mg/dL (0.2-1.0); TOTAL PROTEIN 7.6 g/dL (6.4-8.2)
== END | disposition home or self-care (01) ==
LOC: LAB 08:54
PROVIDERS: ATTEND Internal Medicine Hematology & Oncology
DX: C50.211 Malignant neoplasm of upper-inner quadrant of right female breast (principal)
CPT/HCPCS: 36415; 80053; 83735; 85027

== ENCOUNTER → 2017-03-30 | Outpatient (CLI) | payer OTHER ==
[2016-11-23 15:15] VITALS: BP 100/68
[2017-03-30 12:39] LABS: BASO % 1 % (0-3); EOS % 0 % (0-3); HEMATOCRIT 29.3 % (36.0-47.0); HEMOGLOBIN 9.7 g/dL (12.0-15.5); LYMPH # 1.3 x10^3/uL (1.0-4.8); LYMPH % 24 % (24-48); MEAN CORPUSCULAR HEMOGLOBIN 30 pg (25-35); MEAN CORPUSCULAR HGB CONC 33 g/dL (31-37); MEAN CORPUSCULAR VOLUME 91 fL (79-100); MONO % 10 % (0-9); NEUT % 66 % (31-73); PLATELET COUNT 149 x10^3/uL (140-400); RED BLOOD COUNT 3.22 x10^6/uL (3.50-5.40); RED CELL DISTRIBUTION WIDTH 19.8 % (11.5-14.5); WHITE BLOOD COUNT 5.7 x10^3/uL (4.0-11.0)
[2017-03-30 12:52] LABS: ALBUMIN 3.4 g/dL (3.4-5.0); ALBUMIN/GLOBULIN RATIO 0.8 (1.0-1.7); CALCIUM 8.2 mg/dL (8.5-10.1); CREATININE 0.8 mg/dL (0.6-1.0); GFR 75.6; MAGNESIUM 1.8 mg/dL (1.8-2.4); POTASSIUM 3.6 mmol/L (3.5-5.1); TOTAL BILIRUBIN 0.4 mg/dL (0.2-1.0); TOTAL PROTEIN 7.6 g/dL (6.4-8.2)
== END | disposition home or self-care (01) ==
LOC: LAB 09:19
PROVIDERS: ATTEND Internal Medicine Medical Oncology
DX: C50.211 Malignant neoplasm of upper-inner quadrant of right female breast (principal)
CPT/HCPCS: 36415; 80053; 83735; 85027

== ENCOUNTER → 2017-04-19 | Outpatient (CLI) | payer OTHER ==
[2016-11-23 15:15] VITALS: BP 100/68
[2017-04-19 09:38] LABS: BASO % 0 % (0-3); EOS % 0 % (0-3); HEMATOCRIT 26.2 % (36.0-47.0); LYMPH # 1.4 x10^3/uL (1.0-4.8); LYMPH % 23 % (24-48); MEAN CORPUSCULAR HEMOGLOBIN 32 pg (25-35); MEAN CORPUSCULAR HGB CONC 34 g/dL (31-37); MEAN CORPUSCULAR VOLUME 94 fL (79-100); MONO % 8 % (0-9); NEUT % 68 % (31-73); PLATELET COUNT 95 x10^3/uL (140-400); RED CELL DISTRIBUTION WIDTH 22.6 % (11.5-14.5); WHITE BLOOD COUNT 6.2 x10^3/uL (4.0-11.0)
[2017-04-19 09:52] LABS: ALBUMIN/GLOBULIN RATIO 0.8 (1.0-1.7); CALCIUM 8.1 mg/dL (8.5-10.1); CREATININE 0.7 mg/dL (0.6-1.0); GFR 88.2; POTASSIUM 3.8 mmol/L (3.5-5.1); TOTAL BILIRUBIN 0.3 mg/dL (0.2-1.0); TOTAL PROTEIN 6.9 g/dL (6.4-8.2)
== END | disposition home or self-care (01) ==
LOC: LAB 09:13
PROVIDERS: ATTEND Internal Medicine Medical Oncology
DX: C50.211 Malignant neoplasm of upper-inner quadrant of right female breast (principal)
CPT/HCPCS: 36415; 80053; 85025

== ENCOUNTER → 2017-05-11 | Outpatient (CLI) | payer OTHER ==
[2016-11-23 15:15] VITALS: BP 100/68
[2017-05-11 10:31] LABS: BASO % 0 % (0-3); EOS % 0 % (0-3); HEMATOCRIT 24.9 % (36.0-47.0); HEMOGLOBIN 8.3 g/dL (12.0-15.5); LYMPH # 1.5 x10^3/uL (1.0-4.8); LYMPH % 37 % (24-48); MEAN CORPUSCULAR HEMOGLOBIN 34 pg (25-35); MEAN CORPUSCULAR HGB CONC 33 g/dL (31-37); MEAN CORPUSCULAR VOLUME 101 fL (79-100); MONO % 8 % (0-9); NEUT % 54 % (31-73); PLATELET COUNT 58 x10^3/uL (140-400); RED BLOOD COUNT 2.46 x10^6/uL (3.50-5.40); RED CELL DISTRIBUTION WIDTH 22.4 % (11.5-14.5); WHITE BLOOD COUNT 3.9 x10^3/uL (4.0-11.0)
[2017-05-11 10:43] LABS: ALBUMIN/GLOBULIN RATIO 0.8 (1.0-1.7); CALCIUM 9.1 mg/dL (8.5-10.1); CREATININE 0.7 mg/dL (0.6-1.0); GFR 88.2; POTASSIUM 3.5 mmol/L (3.5-5.1); TOTAL BILIRUBIN 0.2 mg/dL (0.2-1.0)
== END | disposition home or self-care (01) ==
LOC: LAB 09:54
PROVIDERS: ATTEND Internal Medicine Medical Oncology
DX: C50.211 Malignant neoplasm of upper-inner quadrant of right female breast (principal)
CPT/HCPCS: 36415; 80053; 85025

== ENCOUNTER → 2017-05-19 | Outpatient (CLI) | payer OTHER ==
[2016-11-23 15:15] VITALS: BP 100/68
[2017-05-19 13:15] LABS: BASO % 1 % (0-3); EOS % 3 % (0-3); HEMATOCRIT 29.8 % (36.0-47.0); HEMOGLOBIN 9.8 g/dL (12.0-15.5); LYMPH # 1.5 x10^3/uL (1.0-4.8); LYMPH % 31 % (24-48); MEAN CORPUSCULAR HEMOGLOBIN 34 pg (25-35); MEAN CORPUSCULAR HGB CONC 33 g/dL (31-37); MEAN CORPUSCULAR VOLUME 104 fL (79-100); MONO % 12 % (0-9); NEUT % 53 % (31-73); PLATELET COUNT 213 x10^3/uL (140-400); RED BLOOD COUNT 2.85 x10^6/uL (3.50-5.40); RED CELL DISTRIBUTION WIDTH 21.5 % (11.5-14.5); WHITE BLOOD COUNT 4.7 x10^3/uL (4.0-11.0)
[2017-05-19 13:37] LABS: ALBUMIN 3.4 g/dL (3.4-5.0); ALBUMIN/GLOBULIN RATIO 0.9 (1.0-1.7); CALCIUM 9.1 mg/dL (8.5-10.1); CREATININE 0.6 mg/dL (0.6-1.0); GFR 105.4; POTASSIUM 3.8 mmol/L (3.5-5.1); TOTAL BILIRUBIN 0.3 mg/dL (0.2-1.0); TOTAL PROTEIN 7.3 g/dL (6.4-8.2)
[2017-05-19 14:38] LABS: ANISOCYTOSIS SLIGHT; TEAR DROP CELLS OCC
[2017-05-19 14:45] LABS: PLT ESTIMATE ADEQUATE (ADEQUATE)
== END | disposition home or self-care (01) ==
LOC: LAB 12:47
PROVIDERS: ATTEND Internal Medicine Medical Oncology
DX: C50.211 Malignant neoplasm of upper-inner quadrant of right female breast (principal)
CPT/HCPCS: 36415; 80053; 85025

== ENCOUNTER → 2017-06-11 | Outpatient (CLI) | payer OTHER ==
[2016-11-23 15:15] VITALS: BP 100/68
[2017-06-11 09:39] LABS: BASO % 1 % (0-3); EOS % 0 % (0-3); HEMATOCRIT 26.2 % (36.0-47.0); HEMOGLOBIN 8.8 g/dL (12.0-15.5); LYMPH # 1.6 x10^3/uL (1.0-4.8); LYMPH % 38 % (24-48); MEAN CORPUSCULAR HEMOGLOBIN 35 pg (25-35); MEAN CORPUSCULAR HGB CONC 34 g/dL (31-37); MEAN CORPUSCULAR VOLUME 105 fL (79-100); MONO % 11 % (0-9); NEUT % 50 % (31-73); PLATELET COUNT 50 x10^3/uL (140-400); RED CELL DISTRIBUTION WIDTH 18.1 % (11.5-14.5); WHITE BLOOD COUNT 4.2 x10^3/uL (4.0-11.0)
[2017-06-11 09:57] LABS: ALBUMIN 3.2 g/dL (3.4-5.0); ALBUMIN/GLOBULIN RATIO 0.8 (1.0-1.7); CALCIUM 8.6 mg/dL (8.5-10.1); CREATININE 0.7 mg/dL (0.6-1.0); GFR 88.2; POTASSIUM 3.6 mmol/L (3.5-5.1); TOTAL BILIRUBIN 0.3 mg/dL (0.2-1.0); TOTAL PROTEIN 7.2 g/dL (6.4-8.2)
== END | disposition home or self-care (01) ==
LOC: LAB 09:21
PROVIDERS: ATTEND Internal Medicine Medical Oncology
DX: C50.211 Malignant neoplasm of upper-inner quadrant of right female breast (principal)
CPT/HCPCS: 36415; 80053; 85025

== ENCOUNTER → 2017-06-18 | Outpatient (CLI) | payer OTHER ==
[2016-11-23 15:15] VITALS: BP 100/68
[2017-06-18 07:58] LABS: BASO % 0 % (0-3); EOS % 3 % (0-3); HEMATOCRIT 26.7 % (36.0-47.0); LYMPH % 38 % (24-48); MEAN CORPUSCULAR HEMOGLOBIN 35 pg (25-35); MEAN CORPUSCULAR HGB CONC 34 g/dL (31-37); MEAN CORPUSCULAR VOLUME 105 fL (79-100); MONO % 11 % (0-9); NEUT % 47 % (31-73); PLATELET COUNT 113 x10^3/uL (140-400); RED BLOOD COUNT 2.55 x10^6/uL (3.50-5.40); RED CELL DISTRIBUTION WIDTH 18.3 % (11.5-14.5); WHITE BLOOD COUNT 5.2 x10^3/uL (4.0-11.0)
[2017-06-18 08:04] LABS: ALBUMIN 3.2 g/dL (3.4-5.0); DIRECT BILIRUBIN 0.1 mg/dL (0.0-0.2); TOTAL BILIRUBIN 0.3 mg/dL (0.2-1.0); TOTAL PROTEIN 7.3 g/dL (6.4-8.2)
== END | disposition home or self-care (01) ==
LOC: LAB 07:29
PROVIDERS: ATTEND Internal Medicine Medical Oncology
DX: C50.211 Malignant neoplasm of upper-inner quadrant of right female breast (principal)
CPT/HCPCS: 36415; 80076; 85025

== ENCOUNTER → 2017-08-31 | Outpatient (CLI) | payer OTHER ==
[2016-11-23 15:15] VITALS: BP 100/68
[2017-08-31 09:57] LABS: BASO % 1 % (0-3); EOS % 7 % (0-3); HEMATOCRIT 33.4 % (36.0-47.0); HEMOGLOBIN 11.2 g/dL (12.0-15.5); LYMPH # 1.2 x10^3/uL (1.0-4.8); LYMPH % 28 % (24-48); MEAN CORPUSCULAR HEMOGLOBIN 32 pg (25-35); MEAN CORPUSCULAR HGB CONC 34 g/dL (31-37); MEAN CORPUSCULAR VOLUME 96 fL (79-100); MONO % 10 % (0-9); NEUT % 54 % (31-73); PLATELET COUNT 165 x10^3/uL (140-400); RED BLOOD COUNT 3.48 x10^6/uL (3.50-5.40); RED CELL DISTRIBUTION WIDTH 13.7 % (11.5-14.5); WHITE BLOOD COUNT 4.4 x10^3/uL (4.0-11.0)
[2017-08-31 10:19] LABS: ALBUMIN 3.2 g/dL (3.4-5.0); DIRECT BILIRUBIN 0.1 mg/dL (0.0-0.2); TOTAL BILIRUBIN 0.4 mg/dL (0.2-1.0); TOTAL PROTEIN 7.5 g/dL (6.4-8.2)
== END | disposition home or self-care (01) ==
LOC: LAB 09:38
PROVIDERS: ATTEND Internal Medicine Medical Oncology
DX: C50.211 Malignant neoplasm of upper-inner quadrant of right female breast (principal)
CPT/HCPCS: 36415; 80076; 85025

== ENCOUNTER → 2017-11-08 | Outpatient (CLI) | payer OTHER ==
[2017-11-08 13:11] LABS: ADD MAN DIFF? NO
[2017-11-08 13:19] LABS: BASO % 1 % (0-3); EOS # 0.2 x10^3/uL (0.0-0.7); EOS % 3 % (0-3); HEMATOCRIT 33.2 % (36.0-47.0); HEMOGLOBIN 11.7 g/dL (12.0-15.5); LYMPH # 1.5 x10^3/uL (1.0-4.8); LYMPH % 27 % (24-48); MEAN CORPUSCULAR HEMOGLOBIN 33 pg (25-35); MEAN CORPUSCULAR HGB CONC 35 g/dL (31-37); MEAN CORPUSCULAR VOLUME 94 fL (79-100); MONO # 0.5 x10^3/uL (0.0-1.1); MONO % 8 % (0-9); NEUT # 3.6 x10^3uL (1.8-7.7); NEUT % 62 % (31-73); PLATELET COUNT 209 x10^3/uL (140-400); RED BLOOD COUNT 3.53 x10^6/uL (3.50-5.40); RED CELL DISTRIBUTION WIDTH 13.7 % (11.5-14.5); WHITE BLOOD COUNT 5.8 x10^3/uL (4.0-11.0)
[2017-11-08 13:36] LABS: ALBUMIN 3.3 g/dL (3.4-5.0); ALBUMIN/GLOBULIN RATIO 0.7 (1.0-1.7); ALK PHOS 120 U/L (46-116); ALT (SGPT) 37 U/L (14-59); ANION GAP 10 (6-14); AST (SGOT) 23 U/L (15-37); BLOOD UREA NITROGEN 12 mg/dL (7-20); BUN/CREATININE RATIO 17 (6-20); CALCIUM 9.1 mg/dL (8.5-10.1); CARBON DIOXIDE 27 mmol/L (21-32); CHLORIDE 106 mmol/L (98-107); CREATININE 0.7 mg/dL (0.6-1.0); GFR 88.2; GLUCOSE 103 mg/dL (70-99); POTASSIUM 3.7 mmol/L (3.5-5.1); SODIUM 143 mmol/L (136-145); TOTAL BILIRUBIN 0.3 mg/dL (0.2-1.0); TOTAL PROTEIN 7.9 g/dL (6.4-8.2)
== END | disposition home or self-care (01) ==
LOC: LAB 12:54
DX: C50.211 Malignant neoplasm of upper-inner quadrant of right female breast (principal)
CPT/HCPCS: 36415; 80053; 85025

== ENCOUNTER 2017-11-21 22:18 | Emergency (ER) | payer OTHER ==
[2017-11-21] MEDS: traMADol 50 MG TABLET PO (23:02)
[2017-11-21] MEDS: CEPHALEXIN 250 MG CAPSULE. PO (23:02)
== END 2017-11-21 23:09 | disposition home or self-care (01) ==
LOC: ER 22:18
DX: K04.7 Periapical abscess without sinus (principal); Z92.21 Personal history of antineoplastic chemotherapy; Z85.3 Personal history of malignant neoplasm of breast
CPT/HCPCS: 99283

== ENCOUNTER → 2017-11-22 | Outpatient (CLI) | payer OTHER ==
[2017-11-22 11:30] LABS: ADD MAN DIFF? NO
[2017-11-22 11:47] LABS: BASO % 1 % (0-3); EOS # 0.2 x10^3/uL (0.0-0.7); EOS % 4 % (0-3); HEMATOCRIT 36.9 % (36.0-47.0); HEMOGLOBIN 12.6 g/dL (12.0-15.5); LYMPH # 1.6 x10^3/uL (1.0-4.8); LYMPH % 33 % (24-48); MEAN CORPUSCULAR HEMOGLOBIN 33 pg (25-35); MEAN CORPUSCULAR HGB CONC 34 g/dL (31-37); MEAN CORPUSCULAR VOLUME 95 fL (79-100); MONO # 0.4 x10^3/uL (0.0-1.1); MONO % 9 % (0-9); NEUT # 2.6 x10^3uL (1.8-7.7); NEUT % 53 % (31-73); PLATELET COUNT 237 x10^3/uL (140-400); RED BLOOD COUNT 3.87 x10^6/uL (3.50-5.40); RED CELL DISTRIBUTION WIDTH 14.2 % (11.5-14.5); WHITE BLOOD COUNT 4.9 x10^3/uL (4.0-11.0)
[2017-11-22 12:01] LABS: ALBUMIN 3.8 g/dL (3.4-5.0); ALBUMIN/GLOBULIN RATIO 0.8 (1.0-1.7); ALK PHOS 136 U/L (46-116); ALT (SGPT) 47 U/L (14-59); ANION GAP 8 (6-14); AST (SGOT) 33 U/L (15-37); BLOOD UREA NITROGEN 18 mg/dL (7-20); BUN/CREATININE RATIO 23 (6-20); CALCIUM 9.6 mg/dL (8.5-10.1); CARBON DIOXIDE 31 mmol/L (21-32); CHLORIDE 101 mmol/L (98-107); CREATININE 0.8 mg/dL (0.6-1.0); GFR 75.6; GLUCOSE 108 mg/dL (70-99); SODIUM 140 mmol/L (136-145); TOTAL BILIRUBIN 0.6 mg/dL (0.2-1.0); TOTAL PROTEIN 8.5 g/dL (6.4-8.2)
[2017-11-23 00:10] LABS: CA 27.29 17.1 U/mL (0.0-38.6)
== END | disposition home or self-care (01) ==
LOC: MAMMO 11:21
DX: C50.211 Malignant neoplasm of upper-inner quadrant of right female breast (principal); R92.8 Other abnormal and inconclusive findings on diagnostic imaging of breast
CPT/HCPCS: 36415; 76641; 77066; 80053; 85025; 86300; G0279

== ENCOUNTER → 2018-03-08 | Outpatient (CLI) | payer OTHER ==
[2018-03-08 14:41] LABS: ADD MAN DIFF? NO
[2018-03-08 14:54] LABS: BASO # 0.1 x10^3/uL (0.0-0.2); BASO % 1 % (0-3); EOS # 0.2 x10^3/uL (0.0-0.7); EOS % 3 % (0-3); HEMATOCRIT 37.5 % (36.0-47.0); HEMOGLOBIN 12.7 g/dL (12.0-15.5); LYMPH # 1.7 x10^3/uL (1.0-4.8); LYMPH % 26 % (24-48); MEAN CORPUSCULAR HEMOGLOBIN 33 pg (25-35); MEAN CORPUSCULAR HGB CONC 34 g/dL (31-37); MEAN CORPUSCULAR VOLUME 96 fL (79-100); MONO # 0.4 x10^3/uL (0.0-1.1); MONO % 6 % (0-9); NEUT # 4.4 x10^3uL (1.8-7.7); NEUT % 64 % (31-73); PLATELET COUNT 213 x10^3/uL (140-400); RED BLOOD COUNT 3.89 x10^6/uL (3.50-5.40); RED CELL DISTRIBUTION WIDTH 13.3 % (11.5-14.5); WHITE BLOOD COUNT 6.8 x10^3/uL (4.0-11.0)
[2018-03-08 15:15] LABS: ALBUMIN/GLOBULIN RATIO 0.9 (1.0-1.7); ALK PHOS 147 U/L (46-116); ALT (SGPT) 35 U/L (14-59); ANION GAP 8 (6-14); AST (SGOT) 18 U/L (15-37); BLOOD UREA NITROGEN 12 mg/dL (7-20); BUN/CREATININE RATIO 15 (6-20); CALCIUM 9.4 mg/dL (8.5-10.1); CARBON DIOXIDE 27 mmol/L (21-32); CHLORIDE 106 mmol/L (98-107); CREATININE 0.8 mg/dL (0.6-1.0); GFR 75.3; GLUCOSE 105 mg/dL (70-99); POTASSIUM 3.6 mmol/L (3.5-5.1); SODIUM 141 mmol/L (136-145); TOTAL BILIRUBIN 0.4 mg/dL (0.2-1.0); TOTAL PROTEIN 8.5 g/dL (6.4-8.2)
[2018-03-10 03:09] LABS: CA 27.29 10.8 U/mL (0.0-38.6)
== END | disposition home or self-care (01) ==
LOC: LAB 14:22
DX: C50.211 Malignant neoplasm of upper-inner quadrant of right female breast (principal)
CPT/HCPCS: 36415; 80053; 85025; 86300

== ENCOUNTER → 2018-09-14 | Outpatient (CLI) | payer SELFPAY ==
[2017-11-21 23:06] VITALS: BP 104/62
[~2018-09-14] MED LIST changes: +CEPH-264 PO; -OXYC-323 PO; +OXYC1TAB15 PO; +TRAM-48 PO
[2018-09-14 14:49] LABS: BASO % 1 % (0-3); EOS % 4 % (0-3); HEMATOCRIT 35.8 % (36.0-47.0); HEMOGLOBIN 12.4 g/dL (12.0-15.5); LYMPH # 1.3 x10^3/uL (1.0-4.8); LYMPH % 24 % (24-48); MEAN CORPUSCULAR HEMOGLOBIN 33 pg (25-35); MEAN CORPUSCULAR HGB CONC 35 g/dL (31-37); MEAN CORPUSCULAR VOLUME 97 fL (79-100); MONO % 8 % (0-9); NEUT # 3.5 x10^3uL (1.8-7.7); NEUT % 64 % (31-73); PLATELET COUNT 236 x10^3/uL (140-400); RED BLOOD COUNT 3.69 x10^6/uL (3.50-5.40); RED CELL DISTRIBUTION WIDTH 13.7 % (11.5-14.5); WHITE BLOOD COUNT 5.5 x10^3/uL (4.0-11.0)
[2018-09-14 14:50] LABS: EOS # 0.2 x10^3/uL (0.0-0.7); MONO # 0.4 x10^3/uL (0.0-1.1)
[2018-09-14 15:14] LABS: ALBUMIN 3.6 g/dL (3.4-5.0); ALBUMIN/GLOBULIN RATIO 0.8 (1.0-1.7); CALCIUM 9.3 mg/dL (8.5-10.1); CREATININE 0.7 mg/dL (0.6-1.0); GFR 87.9; POTASSIUM 3.5 mmol/L (3.5-5.1); TOTAL BILIRUBIN 0.4 mg/dL (0.2-1.0); TOTAL PROTEIN 8.2 g/dL (6.4-8.2)
== END | disposition home or self-care (01) ==
LOC: LAB 13:57
PROVIDERS: ATTEND Internal Medicine Medical Oncology
DX: C50.211 Malignant neoplasm of upper-inner quadrant of right female breast (principal)
CPT/HCPCS: 36415; 80053; 85025; 86300